=== PATIENT | female | born 1970 | race Caucasian/White ===

== ENCOUNTER 2018-01-05 15:42 | Emergency (ER) | payer OTHER ==
[~2018-01-05] VITALS: Ht 167.6 cm; Wt 83.2 kg
[2018-01-05 16:04] VITALS: BP 149/87
[2018-01-05] MEDS ORDERED: FLEXERIL10 MG PO (16:41)
[2018-01-05] MEDS ORDERED: MOTRIN800 MG PO (16:41)
[2018-01-05] MEDS ORDERED: PREDNISONE20 MG PO (16:41)
== END 2018-01-05 17:10 | disposition home or self-care (01) ==
LOC: EME 15:42
DX: M54.30 Sciatica, unspecified side (principal); V43.52XA Car driver injured in collision with other type car in traffic accident, initial encounter; Y92.410 Unspecified street and highway as the place of occurrence of the external cause; F17.200 Nicotine dependence, unspecified, uncomplicated
CPT/HCPCS: 99281; 99284